=== PATIENT | male | born 1935 | race Caucasian/White ===

== ENCOUNTER 2024-05-13 04:30 | Emergency (ER) | payer MEDICARE, OTHER ==
[~2024-05-13] VITALS: Ht 177.8 cm; Wt 84.4 kg
[2024-05-13] MEDS ORDERED: Dexamethasone Sodium Phospha 20 MG/5 ML VIAL IM ONE (04:55)
[2024-05-13] MEDS ORDERED: diphenhydrAMINE hydrochloride 50 MG/ML VIAL IM ONE (04:55)
== END 2024-05-13 05:51 | disposition home or self-care (01) ==
LOC: ED 04:30
DX: L29.9 Pruritus, unspecified (principal); T50.995A Adverse effect of other drugs, medicaments and biological substances, initial encounter; Y92.89 Other specified places as the place of occurrence of the external cause